=== PATIENT | male | born 1995 | race Caucasian/White ===

== ENCOUNTER 2018-11-09 22:10 | Emergency (ER) | payer OTHER ==
[~2018-11-09] VITALS: Ht 188 cm; Wt 78.2 kg
[2018-11-09 22:22] VITALS: Ht 188 cm; Wt 78.2 kg
[2018-11-10 01:37] LABS: BASOPHIL % 0.4 % (0-2); PLATELET COUNT 273 x10^3mcL (130-400); RED CELL DISTRIBUTION WIDTH 12.6 % (11.5-14.5)
[2018-11-10 01:50] LABS: CALCIUM 9.3 mg/dL (8.5-10.1); CHLORIDE SERUM 102 mmol/L (98-107); CREATININE SERUM 0.9 mg/dL (0.7-1.3); GFR1 > 60 mL/min; GLUCOSE SERUM 112 mg/dL (74-106); POTASSIUM SERUM 3.4 mmol/L (3.5-5.1); SODIUM SERUM 142 mmol/L (136-145)
[2018-11-10 01:51] LABS: AMPHETAMINE QUAL UR NONE DETECTED (See below)
[2018-11-10 02:04] LABS: ALBUMIN 4.9 g/dL (3.4-5.0); ALKALINE PHOSPHATASE 84 U/L (46-116); ALT/SGPT 30 U/L (16-63); AST/SGOT 33 U/L (15-37); BILIRUBIN TOTAL 2.31 mg/dL (0.20-1.00); T4(THYROXINE) 11.4 ug/dL (4.7-13.3)
[2018-11-10 02:05] LABS: TOTAL PROTEIN, SERUM 8.8 g/dL (6.4-8.2)
[2018-11-10 05:55] VITALS: BP 138/82
== END 2018-11-10 05:55 | disposition home or self-care (01) ==
LOC: ED 22:10
PROVIDERS: Emergency Medicine
DX: F31.9 Bipolar disorder, unspecified (principal); F20.0 Paranoid schizophrenia; Z91.010 Allergy to peanuts
CPT/HCPCS: 36415; G0480

== ENCOUNTER 2020-09-03 15:47 | Emergency (ER) | payer OTHER | END 2020-09-03 17:52 | disposition other institution (70) | LOC: ED 15:47 | DX: Z02.89 Encounter for other administrative examinations (principal) ==

== ENCOUNTER 2020-09-03 15:47 | Emergency (ER) | payer OTHER ==
[~2020-09-03] VITALS: Ht 182.9 cm; Wt 86.2 kg
[2020-09-03 15:57] VITALS: BP 113/71; Ht 182.9 cm; Wt 86.2 kg
== END 2020-09-03 17:52 | disposition other institution (70) ==
LOC: ED 15:47
DX: S01.81XA Laceration without foreign body of other part of head, initial encounter (principal); J45.909 Unspecified asthma, uncomplicated; Z91.010 Allergy to peanuts; V49.49XA Driver injured in collision with other motor vehicles in traffic accident, initial encounter; Y93.89 Activity, other specified; Y92.89 Other specified places as the place of occurrence of the external cause; Y99.8 Other external cause status
CPT/HCPCS: J2001